=== PATIENT | female | born 1945 | race Caucasian/White ===

== ENCOUNTER → 2017-08-14 | Outpatient (CLI) | payer OTHER | END | disposition home or self-care (01) | LOC: KCIC MAMMO 15:59 | DX: Z12.31 Encounter for screening mammogram for malignant neoplasm of breast (principal) | CPT/HCPCS: 77067 ==

== ENCOUNTER → 2017-08-31 | Outpatient (CLI) | payer OTHER | END | disposition home or self-care (01) | LOC: KCIC MAMMO 12:26 | DX: N64.89 Other specified disorders of breast (principal) | CPT/HCPCS: 77065 ==

== ENCOUNTER 2018-08-11 12:54 | Inpatient (IN) | payer MEDICARE, OTHER ==
[~2018-08-11] VITALS: Ht 160 cm; Wt 88.0 kg
[2018-08-11 13:48] LABS: BASO # 0.1 x10^3/uL (0.0-0.2); BASO % 1 % (0-3); EOS # 0.2 x10^3/uL (0.0-0.7); EOS % 2 % (0-3); HEMATOCRIT 36.7 % (36.0-47.0); HEMOGLOBIN 12.1 g/dL (12.0-15.5); LYMPH # 2.1 x10^3/uL (1.0-4.8); LYMPH % 27 % (24-48); MEAN CORPUSCULAR HEMOGLOBIN 28 pg (25-35); MEAN CORPUSCULAR HGB CONC 33 g/dL (31-37); MEAN CORPUSCULAR VOLUME 86 fL (79-100); MONO # 0.6 x10^3/uL (0.0-1.1); MONO % 8 % (0-9); NEUT # 4.8 x10^3uL (1.8-7.7); NEUT % 62 % (31-73); PLATELET COUNT 369 x10^3/uL (140-400); RED BLOOD COUNT 4.29 x10^6/uL (3.50-5.40); RED CELL DISTRIBUTION WIDTH 14.1 % (11.5-14.5); WHITE BLOOD COUNT 7.7 x10^3/uL (4.0-11.0)
[2018-08-11 13:57] LABS: PROTHROMBIN TIME PATIENT 12.3 SEC (11.7-14.0)
[2018-08-11 13:58] LABS: CALCIUM 9.4 mg/dL (8.5-10.1); GFR 54.2; POTASSIUM 3.8 mmol/L (3.5-5.1)
[2018-08-11] MEDS ORDERED: ASPIRIN CHEWABLE 81 MG TABLET. PO ONE (14:00)
[2018-08-11] MEDS ORDERED: NITROGLYCERIN SUBLINGUAL 0.4 MG BOTTLE OF 25. SL PRN ×2 (14:00→14:30)
[2018-08-11 14:03] LABS: ALBUMIN 3.7 g/dL (3.4-5.0); ALBUMIN/GLOBULIN RATIO 0.9 (1.0-1.7); TOTAL BILIRUBIN 0.4 mg/dL (0.2-1.0); TOTAL PROTEIN 7.6 g/dL (6.4-8.2)
--- NOTE | 2018-08-11 14:17 | RAD ---
AP view of the chest. Comparison: Chest radiograph dated 11/23/2009. Indication: STERNAL CHEST PAIN, NAUSEA X1 DAY Findings: Normal lung volume. No focal airspace disease. Normal pulmonary vasculature. No pleural effusion. No pneumothorax. The cardiomediastinal silhouette is unchanged in appearance. The great vessels are unchanged. No acute osseous abnormality. Impression: 1. No acute cardiopulmonary process. Electronically signed by: Herb Hidalgo MD (08/11/2018 2:15 PM) [facility]
--- NOTE | 2018-08-11 14:37 | PHYS DOC ---
Past Medical History Past Medical History: Anxiety, High Cholesterol, Hypertension Past Surgical History: Cholecystectomy, Tonsillectomy Alcohol Use: Rarely Drug Use: None Adult General Chief Complaint Chief Complaint: CHEST PAIN HPI HPI Patient is a 73 year old F P/W CHEST PAIN. ONSET YESTRDAY PRESSSURE CENTER OF CHEST A/W MILD SOB AND NAUSEA NO VOMITING NO ABDO PIAN USUALLY HAPPENS AT REST [facility] THINKS SHE DOES TOO MUCH AND IS GETTING HERSELF TIRED OUT. NO FEVER. NO ABDO PAIN IN ER HAS AN EPISODE PROBABLY 10-15 MINUTES, GOT NITRO AND IT WENT AWAY COMPLETELY IMP: CHEST PAIN, DOES NOT SOUND PE OR DISSECTION HEART SCORE H 2 E 0 A 2 R 1 T 0 = ADMIT D/W HASMUKH AT 230 DISCUSSED CASE Review of Systems Review of Systems Constitutional: Denies fever or chills [] Eyes: Denies change in visual acuity, redness, or eye pain [] HENT: Denies nasal congestion or sore throat [] Respiratory: Denies cough or shortness of breath [] Cardiovascular: No additional information not addressed in HPI [] GI: Denies abdominal pain, nausea, vomiting, bloody stools or diarrhea [] : Denies dysuria or hematuria [] Musculoskeletal: Denies back pain or joint pain [] Integument: Denies rash or skin lesions [] Neurologic: Denies headache, focal weakness or sensory changes [] Endocrine: Denies polyuria or polydipsia [] All other systems were reviewed and found to be within normal limits, except as documented in this note. Current Medications Current Medications Current Medications Medications (Trade) Dose Ordered Sig/Radha Start Time Stop Time Status Last Admin Dose Admin Aspirin (Children'S Aspirin) 324 mg 1X ONCE 08/11/18 14:00 08/11/18 14:01 DC 08/11/18 13:52 324 MG Nitroglycerin (Nitrostat) 0.4 mg PRN Q5MIN PRN 08/11/18 14:00 08/11/18 13:56 0.4 MG Allergies Allergies Allergies Coded Allergies Type Severity Reaction Last Updated Verified No Known Drug Allergies 08/11/18 No Physical Exam Physical Exam Constitutional: Well developed, well nourished, no acute distress, non-toxic appearance. [] HENT: Normocephalic, atraumatic, bilateral external ears normal, oropharynx moist, no oral exudates, nose normal. [] Eyes: PERRLA, EOMI, conjunctiva normal, no discharge. [] Neck: Normal range of motion, no tenderness, supple, no stridor. [] Cardiovascular:Heart rate regular rhythm, no murmur [] Lungs & Thorax: Bilateral breath sounds clear to auscultation [] Abdomen: Bowel sounds normal, soft, no tenderness, no masses, no pulsatile masses. [] Skin: Warm, dry, no erythema, no rash. [] Back: No tenderness, no CVA tenderness. [] Extremities: No tenderness, no cyanosis, no clubbing, ROM intact, no edema. [] Neurologic: Alert and oriented X 3, normal motor function, normal sensory function, no focal deficits noted. [] Psychologic: Affect normal, judgement normal, mood normal. [] Current Patient Data Vital Signs Vital Signs Date Time Temp Pulse Resp B/P (MAP) Pulse Ox O2 Delivery O2 Flow Rate FiO2 08/11/18 13:56 71 146/67 08/11/18 13:02 97.9 16 98 Room Air 97.9 Lab Values Laboratory Tests Test 08/11/18 13:05 White Blood Count 7.7 x10^3/uL (4.0-11.0) Red Blood Count 4.29 x10^6/uL (3.50-5.40) Hemoglobin 12.1 g/dL (12.0-15.5) Hematocrit 36.7 % (36.0-47.0) Mean Corpuscular Volume 86 fL (79-100) Mean Corpuscular Hemoglobin 28 pg (25-35) Mean Corpuscular Hemoglobin Concent 33 g/dL (31-37) Red Cell Distribution Width 14.1 % (11.5-14.5) Platelet Count 369 x10^3/uL (140-400) Neutrophils (%) (Auto) 62 % (31-73) Lymphocytes (%) (Auto) 27 % (24-48) Monocytes (%) (Auto) 8 % (0-9) Eosinophils (%) (Auto) 2 % (0-3) Basophils (%) (Auto) 1 % (0-3) Neutrophils # (Auto) 4.8 x10^3uL (1.8-7.7) Lymphocytes # (Auto) 2.1 x10^3/uL (1.0-4.8) Monocytes # (Auto) 0.6 x10^3/uL (0.0-1.1) Eosinophils # (Auto) 0.2 x10^3/uL (0.0-0.7) Basophils # (Auto) 0.1 x10^3/uL (0.0-0.2) Prothrombin Time 12.3 SEC (11.7-14.0) Prothrombin Time INR 0.9 (0.8-1.1) Sodium Level 130 mmol/L (136-145) L Potassium Level 3.8 mmol/L (3.5-5.1) Chloride Level 94 mmol/L (98-107) L Carbon Dioxide Level 26 mmol/L (21-32) Anion Gap 10 (6-14) Blood Urea Nitrogen 17 mg/dL (7-20) Creatinine 1.0 mg/dL (0.6-1.0) Estimated GFR (Cockcroft-Gault) 54.2 BUN/Creatinine Ratio 17 (6-20) Glucose Level 94 mg/dL (70-99) Calcium Level 9.4 mg/dL (8.5-10.1) Total Bilirubin 0.4 mg/dL (0.2-1.0) Aspartate Amino Transferase (AST) 22 U/L (15-37) Alanine Aminotransferase (ALT) 19 U/L (14-59) Alkaline Phosphatase 81 U/L (46-116) Troponin I Quantitative < 0.017 ng/mL (0.000-0.055) YY-Zoe-X-Type Natriuretic Peptide 159 pg/mL (0-124) H Total Protein 7.6 g/dL (6.4-8.2) Albumin 3.7 g/dL (3.4-5.0) Albumin/Globulin Ratio 0.9 (1.0-1.7) L Laboratory Tests 08/11/18 13:05 Laboratory Tests 08/11/18 13:05 EKG EKG []EKG NSR NORMAL RATE AND INTERVALS NO ISCHEMIC CHANGES REPEAT EKG ALSO THE SAME NO ISCHEMIAS SEEN Radiology/Procedures Radiology/Procedures [] Impressions: Impression: 1. No acute cardiopulmonary process. Electronically signed by: Herb Hidalgo MD (08/11/2018 2:15 PM) [facility] DICTATED and SIGNED BY: HERB HIDALGO MD DATE: 08/11/18 1415 Course & Med Decision Making Course & Med Decision Making Pertinent Labs and Imaging studies reviewed. (See chart for details) []SEE HPI Dragon Disclaimer Dragon Disclaimer This electronic medical record was generated, in whole or in part, using a voice recognition dictation system. Departure Departure Impression: Primary Impression: Chest pain Disposition: ADMITTED INPATIENT Admitting Physician: Ana Laura Noe Condition: STABLE Referrals: ANA LAURA NOE MD (PCP) JOSUE AVILA MD Aug 11, 2018 14:37
[2018-08-11 15:15] VITALS: BP 140/62
[2018-08-11] MEDS ORDERED: SIMV20TA3 PO (15:48)
[2018-08-11] MEDS ORDERED: HYDR12.575 PO (15:48)
[2018-08-11] MEDS ORDERED: TEMA15CA PO (15:48)
[2018-08-11] MEDS ORDERED: CITA20TA6 PO (15:48)
[2018-08-11] MEDS ORDERED: LISI-130 PO (15:48)
[2018-08-11] MEDS ORDERED: TEMAZEPAM 15 MG CAPSULE PO PRN (16:00)
[2018-08-11 19:39] VITALS: BP 138/66
[2018-08-11] MEDS: TEMAZEPAM 15 MG CAPSULE PO SCH (20:43)
[2018-08-11] MEDS: SIMVASTATIN 20 MG TABLET PO SCH (20:43)
[2018-08-11 23:10] VITALS: BP 94/46
[2018-08-12 03:40] VITALS: BP 131/62
[2018-08-12 07:00] VITALS: BP 138/63
--- NOTE | 2018-08-12 08:22 | EKG ---
[facility] [address] [place] [address] Test Date: 2018-08-11 Test Time: 13:02:36 Pat Name: MYRA BSUH Department: Room: 202 1 Gender: Female Patient Attendant: SARITA : 1945 Requested By: JOSUE AVILA Order Number: [id number] Reading MD: Nathanael Bauer MD Measurements Intervals Colby Rate: 73 P: 105 NM: 172 QRS: 21 QRSD: 88 T: 25 QT: 372 QTc: 413 Interpretive Statements SINUS RHYTHM Electronically Signed On 08-14-2018 15:15:35 CDT by Nathanael Bauer MD
[2018-08-12] MEDS ORDERED: ACETAMINOPHEN 325 MG TABLET. PO PRN (08:30)
[2018-08-12] MEDS: LISINOPRIL 20 MG TABLET PO SCH (08:48)
[2018-08-12] MEDS: CITALOPRAM 20 MG TABLET. PO SCH (08:48)
[2018-08-12] MEDS: hydroCHLOROthiazide 12.5 MG CAPSULE PO SCH (08:48)
[2018-08-12 10:48] VITALS: BP 143/65
--- NOTE | 2018-08-12 10:49 | PDOC ---
Provider Note Provider Note [id number] doubt cardiac origin, but needs a treadmill- will inc omeprazole now, cv consult pending ANA LAURA NOE MD Aug 12, 2018 10:49
[2018-08-12] MEDS ORDERED: PANTOPRAZOLE 40 MG TABLET.DR. PO ONE (11:00)
--- NOTE | 2018-08-12 11:23 | HP ---
ADMIT DATE: 08/11/2018 CHIEF COMPLAINT: Chest pressure. HISTORY OF PRESENT ILLNESS: A 73-year-old white female with a history of controlled hypertension and hyperlipidemia, was doing well until the day prior to admission. She was at a softball game and on the way driving home, she developed "chest pressure" with some mild burning sensation like heartburn and mild shortness of breath and dizziness, nonspecific. There was no radiation, diaphoresis, vomiting, nausea, cough or other symptoms. The symptoms resolved fairly quickly, but the next day recurred while she was again at rest and she came to the ER. She was having the chest pressure in the Emergency Room and nitroglycerin relieved this pressure and also gave her a headache. She normally takes Prilosec 20 mg daily for acid reflux and had been taking that medication every day. The day of the onset of symptoms, she walked up a hill, had a softball game without any chest pain and just mild dyspnea. She has never had any cardiac events before. MEDICATIONS: Include lisinopril, hydrochlorothiazide and simvastatin with excellent control of lipids. PAST MEDICAL HISTORY: There is no history of diabetes, no other significant medical problems. SOCIAL HISTORY: Nonsmoker, , employed, nondrinker. FAMILY HISTORY: Unremarkable. REVIEW OF SYSTEMS: No other complaints. PHYSICAL EXAMINATION: ENT: All within normal limits. NECK: No masses, nodes or bruits. LUNGS: Clear. CARDIOVASCULAR: Regular rate. No irregular beat, murmur or tachycardia. ABDOMEN: Soft, benign and nontender. EXTREMITIES: Excellent pedal and radial pulses. No joint or skin lesions or nail bed findings. NEUROLOGIC: Physiologic and nonfocal. GENITOURINARY AND RECTAL: Deferred. LABORATORY STUDIES: Showed normal EKG and chest x-ray, troponin x 3 and all chemistry tests were unremarkable as was the CBC. Recent lipid profile showed a total cholesterol around 140, LDL around 60. ASSESSMENT: Chest pressure and burning, relieved by nitroglycerin. She is certainly low risk for coronary artery disease, had an exercise the day of the symptoms without any symptoms developing. Could be esophageal in origin with spasm, but cannot rule out coronary artery disease, though she has not had a myocardial infarction. Her lipids and hypertension control is excellent. PLAN: I would suggest a treadmill study and we will keep the hat former's opinion. Might be discharged and followed as an outpatient for this study as she is medically stable, but get their opinion for this as well. We will increase the dose of omeprazole to cover the possible or gastroesophageal origin of symptoms. ANA LAURA NOE MD DR: RAHUL/augustin JOB#: [id number] / [id number]
--- NOTE | 2018-08-12 12:18 | PDOC2 ---
CONSULT Date of Consult Date of Consult DATE: 08/12/18 TIME: 12:12 Reason for Consult Reason for Consult: Chest pain Referring Physician Referring Physician: Dr. Horn Identification/Chief Complaint Chief Complaint Chest pain Source Source: Chart review, Patient History of Present Illness Reason for Visit: The patient is a 73-year-old female with a history of hypertension, hyperlipidemia and gastroesophageal reflux disease who was admitted last evening from the emergency room due to episodes of chest pain. Patient states that her pain came on abruptly and was associated with shortness of breath and mild nausea. The patient reportedly had one episode of chest pain in the emergency room that was resolved with sublingual nitroglycerin. She has been pain-free overnight and is resting comfortably today. Her EKG shows no acute ischemic changes. Troponins have been normal x 3. Past Medical History Cardiovascular: HTN, Hyperlipidemia GI: GERD Past Surgical History Past Surgical History: Cholecystectomy, Tonsillectomy Family History Family History: Hypertension Social History No ALCOHOL: rare Current Problem List Problem List Problems Medical Problems: (1) Chest pain Status: Acute Current Medications Current Medications Current Medications Aspirin (Children'S Aspirin) 324 mg 1X ONCE PO Last administered on 08/11/18at 13:52; Start 08/11/18 at 14:00; Stop 08/11/18 at 14:01; Status DC Nitroglycerin (Nitrostat) 0.4 mg PRN Q5MIN PRN SL CHEST PAIN Last administered on 08/11/18at 13:56; Start 08/11/18 at 14:00; Stop 08/11/18 at 14:33; Status DC Nitroglycerin (Nitrostat) 0.4 mg PRN Q5MIN PRN SL CHEST PAIN; Start 08/11/18 at 14:30; Stop 08/12/18 at 14:29 Citalopram Hydrobromide (CeleXA) 20 mg DAILY PO Last administered on 08/12/18at 08:48; Start 08/12/18 at 09:00 Hydrochlorothiazide (Microzide) 12.5 mg DAILY PO Last administered on 08/12/18at 08:48; Start 08/12/18 at 09:00 Lisinopril (Prinivil) 40 mg DAILY PO Last administered on 08/12/18at 08:48; Start 08/12/18 at 09:00 Temazepam (Restoril) 15 mg QHS PO Last administered on 08/11/18at 20:43; Start at 21:00 Simvastatin (Zocor) 20 mg HS PO Last administered on 08/11/18at 20:43; Start 08/11 at 21:00 Temazepam (Restoril) 15 mg PRN QHS PRN PO IF CONTINUED INSOMNIA; Start 08/11/18 at 16:00 Acetaminophen (Tylenol) 650 mg PRN Q6HRS PRN PO MILD PAIN / TEMP Last administered on 08/12/18at 08:48; Start 08/12/18 at 08:30 Pantoprazole Sodium (Protonix) 40 mg 1X ONCE PO Last administered on 08/12/18at 11:37; Start 08/12/18 at 11:00; Stop 08/12/18 at 11:01; Status DC Active Scripts Active Reported Simvastatin 20 Mg Tablet 1 Tab PO QHS Hydrochlorothiazide Capsule (Hydrochlorothiazide) 12.5 Mg Capsule 12.5 Mg PO DAILY Lisinopril 40 Mg Tablet 1 Tab PO DAILY Citalopram Hbr (Citalopram Hydrobromide) 20 Mg Tablet 1 Tab PO DAILY Temazepam 15 Mg Capsule 1-2 Cap PO QHS Allergies Allergies: Coded Allergies: No Known Drug Allergies (Unverified , 08/11/18) ROS Respiratory: YES: SOB with excertion Cardiovascular: yes Chest Pain Physical Exam General: No acute distress HEENT: Atraumatic Lungs: Clear to auscultation Heart: Regular rate Abdomen: Normal bowel sounds Vitals VITALS Vital Signs Date Time Temp Pulse Resp B/P (MAP) Pulse Ox O2 Delivery O2 Flow Rate FiO2 08/12/18 10:48 97.8 74 18 143/65 (91) 96 Room Air 97.8 Labs Labs Laboratory Tests Test 08/11/18 13:05 08/11/18 17:30 08/11/18 20:30 White Blood Count 7.7 x10^3/uL (4.0-11.0) Red Blood Count 4.29 x10^6/uL (3.50-5.40) Hemoglobin 12.1 g/dL (12.0-15.5) Hematocrit 36.7 % (36.0-47.0) Mean Corpuscular Volume 86 fL (79-100) Mean Corpuscular Hemoglobin 28 pg (25-35) Mean Corpuscular Hemoglobin Concent 33 g/dL (31-37) Red Cell Distribution Width 14.1 % (11.5-14.5) Platelet Count 369 x10^3/uL (140-400) Neutrophils (%) (Auto) 62 % (31-73) Lymphocytes (%) (Auto) 27 % (24-48) Monocytes (%) (Auto) 8 % (0-9) Eosinophils (%) (Auto) 2 % (0-3) Basophils (%) (Auto) 1 % (0-3) Neutrophils # (Auto) 4.8 x10^3uL (1.8-7.7) Lymphocytes # (Auto) 2.1 x10^3/uL (1.0-4.8) Monocytes # (Auto) 0.6 x10^3/uL (0.0-1.1) Eosinophils # (Auto) 0.2 x10^3/uL (0.0-0.7) Basophils # (Auto) 0.1 x10^3/uL (0.0-0.2) Prothrombin Time 12.3 SEC (11.7-14.0) Prothromb Time International Ratio 0.9 (0.8-1.1) Sodium Level 130 mmol/L (136-145) Potassium Level 3.8 mmol/L (3.5-5.1) Chloride Level 94 mmol/L (98-107) Carbon Dioxide Level 26 mmol/L (21-32) Anion Gap 10 (6-14) Blood Urea Nitrogen 17 mg/dL (7-20) Creatinine 1.0 mg/dL (0.6-1.0) Estimated GFR (Cockcroft-Gault) 54.2 BUN/Creatinine Ratio 17 (6-20) Glucose Level 94 mg/dL (70-99) Calcium Level 9.4 mg/dL (8.5-10.1) Total Bilirubin 0.4 mg/dL (0.2-1.0) Aspartate Amino Transf (AST/SGOT) 22 U/L (15-37) Alanine Aminotransferase (ALT/SGPT) 19 U/L (14-59) Alkaline Phosphatase 81 U/L (46-116) Troponin I Quantitative < 0.017 ng/mL (0.000-0.055) < 0.017 ng/mL (0.000-0.055) < 0.017 ng/mL (0.000-0.055) DT-Waa-T-Type Natriuretic Peptide 159 pg/mL (0-124) Total Protein 7.6 g/dL (6.4-8.2) Albumin 3.7 g/dL (3.4-5.0) Albumin/Globulin Ratio 0.9 (1.0-1.7) Laboratory Tests Test 08/11/18 13:05 08/11/18 17:30 08/11/18 20:30 White Blood Count 7.7 x10^3/uL (4.0-11.0) Red Blood Count 4.29 x10^6/uL (3.50-5.40) Hemoglobin 12.1 g/dL (12.0-15.5) Hematocrit 36.7 % (36.0-47.0) Mean Corpuscular Volume 86 fL (79-100) Mean Corpuscular Hemoglobin 28 pg (25-35) Mean Corpuscular Hemoglobin Concent 33 g/dL (31-37) Red Cell Distribution Width 14.1 % (11.5-14.5) Platelet Count 369 x10^3/uL (140-400) Neutrophils (%) (Auto) 62 % (31-73) Lymphocytes (%) (Auto) 27 % (24-48) Monocytes (%) (Auto) 8 % (0-9) Eosinophils (%) (Auto) 2 % (0-3) Basophils (%) (Auto) 1 % (0-3) Neutrophils # (Auto) 4.8 x10^3uL (1.8-7.7) Lymphocytes # (Auto) 2.1 x10^3/uL (1.0-4.8) Monocytes # (Auto) 0.6 x10^3/uL (0.0-1.1) Eosinophils # (Auto) 0.2 x10^3/uL (0.0-0.7) Basophils # (Auto) 0.1 x10^3/uL (0.0-0.2) Prothrombin Time 12.3 SEC (11.7-14.0) Prothromb Time International Ratio 0.9 (0.8-1.1) Sodium Level 130 mmol/L (136-145) Potassium Level 3.8 mmol/L (3.5-5.1) Chloride Level 94 mmol/L (98-107) Carbon Dioxide Level 26 mmol/L (21-32) Anion Gap 10 (6-14) Blood Urea Nitrogen 17 mg/dL (7-20) Creatinine 1.0 mg/dL (0.6-1.0) Estimated GFR (Cockcroft-Gault) 54.2 BUN/Creatinine Ratio 17 (6-20) Glucose Level 94 mg/dL (70-99) Calcium Level 9.4 mg/dL (8.5-10.1) Total Bilirubin 0.4 mg/dL (0.2-1.0) Aspartate Amino Transf (AST/SGOT) 22 U/L (15-37) Alanine Aminotransferase (ALT/SGPT) 19 U/L (14-59) Alkaline Phosphatase 81 U/L (46-116) Troponin I Quantitative < 0.017 ng/mL (0.000-0.055) < 0.017 ng/mL (0.000-0.055) < 0.017 ng/mL (0.000-0.055) DL-Zow-U-Type Natriuretic Peptide 159 pg/mL (0-124) Total Protein 7.6 g/dL (6.4-8.2) Albumin 3.7 g/dL (3.4-5.0) Albumin/Globulin Ratio 0.9 (1.0-1.7) Images Images Chest x-ray with no acute changes. Assessment/Plan Assessment/Plan 1. Chest pain. Patient is feeling better at this time. Her EKG shows no acute ischemic changes. Troponin's have been normal. She did have an episode of chest pain relieved with sublingual nitroglycerin in the emergency room although though this can also be effective with GI pain. She has risk factors of hypertension and hyperlipidemia. I discussed various options with the patient and her family. I have suggested a nuclear stress test but also gave the patient the option of a cardiac catheterization in the setting of her risk factors, her progressive symptoms and symptom relief with nitroglycerin. Risk and benefits of both approaches were discussed with the patient. She will discuss this further with her family and give us a final decision later today. 2. Hypertension. Patient's blood pressures under better control. Will continue present treatments. 3. Hyperlipidemia. Continue present treatment. 4. Gastroesophageal reflux disease. Proton pump inhibitors as above. Thank you for allowing us to participate in the care of your patient. MEME HANSON MD Aug 12, 2018 12:18
[2018-08-12 14:25] VITALS: BP 136/66
[2018-08-12 19:40] VITALS: BP 122/60
[2018-08-12] MEDS: SIMVASTATIN 20 MG TABLET PO SCH (20:47)
[2018-08-12] MEDS: TEMAZEPAM 15 MG CAPSULE PO SCH (20:47)
[2018-08-12 23:05] VITALS: BP 122/68
[2018-08-13] VITALS (10 sets, daily range): BP systolic 123–152; BP diastolic 62–73
[2018-08-13] MEDS ORDERED: IV NORMAL SALINE 1000ML BAG 1,000 ML IV SCH ×2 (07:30→09:32)
[2018-08-13] MEDS ORDERED: LIDOCAINE 1% Multi-Dose 20 ML VIAL. ONE (08:01)
[2018-08-13] MEDS ORDERED: IOHEXOL 300 MG/ML 100ML VIAL. ONE (08:01)
[2018-08-13] MEDS ORDERED: HEPARIN for ARTERIAL LINE 1,500 ML ONE (08:01)
[2018-08-13] MEDS: CITALOPRAM 20 MG TABLET. PO SCH (08:18)
[2018-08-13] MEDS: LISINOPRIL 20 MG TABLET PO SCH (08:18)
[2018-08-13] MEDS: hydroCHLOROthiazide 12.5 MG CAPSULE PO SCH (08:18)
--- NOTE | 2018-08-13 08:42 | PDOC ---
MODERATE SEDATION ASSESSMENT RISKS/ALTERNATIVES Risks/Alternatives Risks and alternatives of this type of sedation and procedure discussed with: RISK/ALTERNATIVES: Patient H & P ON CHART H & P H & P on chart and reviewed for co-morbid conditions and appropriate labs. H&P ON CHART: Yes STATUS PREG STATUS ASSESSED: Yes MEDS/ALLERGIES REVIEWED Meds/Allergies Reviewed Medications and Allergies including time and route of recently administered narcotics and sedatives. MEDS/ALLERGIES REVIEWED: Yes ASA RATING ASA RATING: II AIRWAY ASSESSMENT Airway Assessment Airway patency, oral function limitations, presence of caps, crowns, dentures, partials, and ability to extend neck assessed. AIRWAY ASSESSMENT: Yes MALLAMPATI SCORE MALLAMPATI SCORE: II PRE-SEDATION ASSESSMENT PRE-SEDATION ASSESSMENT: Yes MEME HANSON MD Aug 13, 2018 08:42
--- NOTE | 2018-08-13 08:43 | PDOC ---
Provider Note Provider Note vs, no more pain or new sxs- she elected cath and is there now- disposition re results ANA LAURA NOE MD Aug 13, 2018 08:43
[2018-08-13] MEDS ORDERED: fentaNYL PF VIAL 100 MCG/2 ML VIAL ONE (08:47)
[2018-08-13] MEDS ORDERED: MIDAZOLAM HCL/PF 2 MG/2 ML VIAL. ONE (08:48)
[2018-08-13] MEDS ORDERED: fentaNYL PF VIAL 100 MCG/2 ML VIAL IV ONE (09:15)
[2018-08-13] MEDS ORDERED: IOHEXOL 300 MG/ML 100ML VIAL. IART ONE (09:15)
[2018-08-13] MEDS ORDERED: LIDOCAINE 1% Multi-Dose 20 ML VIAL. INJ ONE (09:15)
[2018-08-13] MEDS ORDERED: MIDAZOLAM HCL/PF 2 MG/2 ML VIAL. IV ONE (09:15)
[2018-08-13] MEDS ORDERED: CONTRAST GIVEN. MC PRN (09:30)
[2018-08-13] MEDS ORDERED: 0.9 % SODIUM CHLORIDE 10 ML DISP.SYRIN. IV PRN (09:45)
[2018-08-13] MEDS ORDERED: NITROGLYCERIN SUBLINGUAL 0.4 MG BOTTLE OF 25. SL PRN (09:45)
--- NOTE | 2018-08-13 11:40 | CARD ---
MR#: [id number] Date of Study: 08/13/2018 Ordering Physician: MEME BARLOW, Referring Physician: Maggie TOVAR: Cecilia Ricketts RT (R) APPROVED REPORT Procedures Left heart catheterization Left ventriculogram Selective coronary angiogram The patient is a 73-year-old female who was admitted with episodes of chest pain. One of her episodes of pain resolved with sublingual nitroglycerin. She has risk factors of hypertension and hyperlipide romelia. In this setting cardiac catheterization was discussed. Risks and benefits were covered with the patient and her family. She's agreed to proceed. After informed consent was obtained the patient was brought to the heart catheterization lab. The are a of the right femoral artery was prepared usual manner with Betadine, sterile draping and local anes thetic. An 18-gauge needle was used to enter the right femoral artery, a wire placed the 6 Maldivian she ath placed over the wire. A 6 Maldivian JL4 diagnostic catheter was used to engage the left coronary sys tem and sequential injections in various views were obtained. A 6 [place]ian Ghanshyam right diagnostic ca theter was used to engage the right coronary artery and sequential injections in various views were o btained. A pigtail catheter was advanced the left ventricle. Pressures were obtained. A 30 NULL left ventriculogram was performed. Pullback pressures were measured. The catheter was removed from the pat ient. All catheter exchanges were over a J-wire. Injection of the sheath showed normal placement. The sheath was removed and sealed with an Angio-Seal product. The patient was moved to the holding area in stable condition. Findings. Hemodynamics. Left ventricular pressure of 138/6, 15. Aortic root pressure of 136/64. Coronaries. Left main. The left main was a normal-size vessel. It had no lesions. Left anterior descending. The LAD was a moderate size vessel with normal distribution. It had mild sm ooth proximal tapering of 15%. Left circumflex. The left circumflex is a moderate size dominant vessel. It had no lesions. Right coronary artery. The right coronary was a moderate size nondominant vessel. It had no lesions. Left ventriculogram. The left ventricle had normal left ventricular systolic function with ejection fraction of greater th an 55%. <Conclusion> Minimal single-vessel coronary disease with no lesions greater than 20%. Normal left ventricular systolic function. Normal left ventricular EDP. Signed by : Meme Barlow MD Electronically Approved : 08/13/2018 11:39:33
--- NOTE | 2018-08-13 12:31 | NUR ---
SS following for discharge planning. SS reviewed pt chart. Pt is from home with spouse and is currently requiring oxygen. No discharge needs noted at this time. SS will continue to follow for pending discharge needs.
[2018-08-13] MEDS ORDERED: OMEP40CA5 PO (16:19)
--- NOTE | 2018-08-13 16:48 | NUR ---
Discharge Note: MYRA BUSH Discharge instructions and discharge home medications reviewed with Patient and a copy given. All questions have been answered and understanding verbalized. Post cardiac cath instructions given and understanding verbalized.
--- NOTE | 2018-08-13 23:20 | DS ---
DATE OF DISCHARGE: 08/13/2018 HOSPITAL SUMMARY: A 73-year-old white female admitted with nonspecific pressure-like pain in her mid epigastrium and lower chest associated with some heartburn. This had not been brought on by any exercise stress and was not accompanied by diaphoresis, nausea or much shortness of breath. EKG and troponins were all normal as was all of her lab work and chest x-ray. She was given the option of a treadmill evaluation versus cardiac catheterization and the family elected to have a cardiac catheterization, which was done on 08/[address] Madden and revealed no sign of any coronary artery disease. She is comfortable to be discharged and followed as an outpatient at this point. FINAL DIAGNOSIS: Chest pain, likely secondary to esophageal spasm from gastroesophageal reflux disease. OPERATIONS AND PROCEDURES: Cardiac catheterization. COMPLICATIONS: None. CONSULTATIONS: Dr. Madden's group. DISPOSITION: Increase Prilosec OTC to 40 mg daily. Rest of home meds remained the same. Office followup in [address] Noe if any new symptoms do occur. ANA LAURA NOE MD DR: RAHUL/augustin JOB#: [id number] / [id number]
== END 2018-08-13 16:38 | disposition home or self-care (01) | DRG 392 ==
LOC: ER 12:54 → 2 NORTH 14:30 → OBSVTOIN 14:30
PROVIDERS: ADMIT Family Medicine; ATTEND Family Medicine
PROC: 4A023N7 Measurement of Cardiac Sampling and Pressure, Left Heart, Percutaneous Approach (ICD-10-PCS; principal; 2018-08-13)
PROC: B2151ZZ Fluoroscopy of Left Heart using Low Osmolar Contrast (ICD-10-PCS; 2018-08-13)
PROC: B2111ZZ Fluoroscopy of Multiple Coronary Arteries using Low Osmolar Contrast (ICD-10-PCS; 2018-08-13)
DX: K21.9 Gastro-esophageal reflux disease without esophagitis (principal); K22.4 Dyskinesia of esophagus; E78.00 Pure hypercholesterolemia, unspecified; E78.5 Hyperlipidemia, unspecified; I10 Essential (primary) hypertension; F41.9 Anxiety disorder, unspecified; Z90.49 Acquired absence of other specified parts of digestive tract; Z79.899 Other long term (current) drug therapy; Z82.49 Family history of ischemic heart disease and other diseases of the circulatory system
CPT/HCPCS: 93458; G0269; 36415; 71045; 80053; 83880; 84484; 85025; 85610; 93005; 99152; 99153; C1760; C1769; C1892; J1644; J2250; J3010; J7030; Q9967; 99285-25; C1771

== ENCOUNTER → 2019-05-31 | Outpatient (CLI) | payer MEDICARE ==
[2018-08-13 15:46] VITALS: BP 131/62
[~2019-05-31] MED LIST: CITA20TA6 PO; HYDR12.575 PO; IOHEXOL 180 MG/ML 10 ML VIAL. ONE; LISI-130 PO; OMEP40CA45 PO; SIMV20TA18 PO; TEMA15CA PO; methylPREDNISolone ACETATE 40 MG/ML VIAL. ONE; methylPREDNISolone ACETATE 80 MG/ML VIAL. ONE
--- NOTE | 2019-06-01 02:16 | PAIN ---
DATE OF SERVICE: 05/31/2019 INITIAL CONSULTATION FOR PAIN CLINIC CHIEF COMPLAINT: Low back and right lower extremity pain. HISTORY OF PRESENT ILLNESS: This is a 73-year-old female who presents with history of pain in low back and right lower extremity for about 12 years. The patient reports it is getting worse over the past 1-2 years. She had had some physical therapy in the past, but doing some exercises recently, which actually made the pain worse this time. She has had some epidural injections at an outside facility several years ago, which helped as well. The patient reports the pain is increased in the low back radiating to posterior gluteus, posterolateral thigh, lateral anterior thigh, anterior medial thigh, posterior calf and posterior lower leg. The patient reports some numbness in the right side as well in the lateral aspect of the leg with walking. It is worse with standing and changing positions, better with sitting or lying down, does not awaken her from sleep at night, does not affect her bowel or bladder control or ability to walk significantly. She is not using any assistive devices to ambulate. The patient reports the pain is constant, sharp, now throbbing, stabbing, shooting in the right lower extremity with tingling and numbness in the foot and some numbness in the lateral lower leg as well on the right side. The patient rates her disability rating from 0-10, 10 being the worst, is a 4 with family home responsibilities, social activity and sexual behavior, 8 with recreation, 5 with occupational activities, 0 with self-care or life support activities. The patient did have MRI scan of the lumbar spine showing at L4-L5, marked narrowing of the disk space with greater on the right than left facet hypertrophy, ligamentum flavum hypertrophy on the right with neural foraminal stenosis on the right, marked encroachment of the left as well with some narrowing at L5-S1, circumferential bulge and marked facet hypertrophy and narrowing of the neural foramina. The patient reports no loss of motor function, but significant fatigability with the right lower extremity, such as walking or standing, again better with sitting, however, she has almost no pain in lying down, does not awaken her from sleep at night. PAST MEDICAL HISTORY: Significant for shortness of breath, hypertension, bronchitis, history of dizziness, arthritis. PREVIOUS SURGERY: Include cholecystectomy in 2004, tonsillectomy in 1950. CURRENT MEDICATIONS: Include temazepam, hydrochlorothiazide, lisinopril, omeprazole, citalopram and simvastatin. ALLERGIES: The patient has no known drug allergies. FAMILY HISTORY: Significant for diabetes. SOCIAL HISTORY: The patient drinks alcohol about once every few months. Does not smoke, does not use any illegal, illicit or recreational drugs. She is , lives with her spouse, has one adult son and lives locally in [place], [place]. The patient works for a local [employer] company. REVIEW OF SYSTEMS: The patient's review of systems is positive for those items mentioned in history of present illness. All systems reviewed and otherwise negative. It is complete, full and well documented on the patient's chart. PHYSICAL EXAMINATION: VITAL SIGNS: The patient's blood pressure 124/68, pulse 81, respirations 16, temperature 97.9 degrees Fahrenheit, height is 5 feet 3 inches, weight is 199 pounds. GENERAL: The patient is awake, alert, oriented, appropriate, very pleasant demeanor. HEENT: Shows normocephalic, atraumatic. Extraocular movements are intact and symmetrical. Oral cavity shows mucous membranes moist and pink. Dentition is intact. NECK: Shows anterior throat supple without palpable lymphadenopathy noted. Swallow reflex symmetrical. CHEST: Shows normal on inspection. Breath sounds are clear bilaterally. HEART: Shows S1, S2 clear. No murmurs auscultated. ABDOMEN: Soft, nontender, nondistended. No palpable organomegaly is noted. No rebound or guarding demonstrated. BACK: Shows spine grossly in the midline. Normal appearing thoracic kyphosis and minor flattening of lumbar lordotic curvature with a lumbar paraspinous musculature shows symmetrical on inspection, on palpation shows some moderate tenderness throughout the middle and lower distribution of paraspinous muscles bilaterally, slightly worse on the right side than the left, but without asymmetry, no atrophy, hypertrophy, no trigger points. No tenderness over the spinous processes, sacrum or sacroiliac regions. No tenderness over the posterior superior iliac spines. The patient shows full rotational motion of the lumbar spine, both laterally greater than 10 degrees right and left as well as extension greater than 10 degrees, forward flexion at 45 degrees without significant pain reported. EXTREMITIES: The patient's lower extremities show deep tendon reflexes at 2+ in the patellar, 1+ tendo-calcaneus tendons. Motor exam is strong with approximately 4 on a scale of 5 with right dorsiflexion, extension, quadriceps and hamstring and 5/5 on the left. Peripheral pulses are 1+ posterior tibia. No peripheral edema is noted. Lower extremities are warm and dry to touch, equal in color and appearance. Straight leg raise noted to be negative for reproduction of radicular symptoms bilaterally. Gaenslen's and Chuy's maneuvers are negative bilaterally as well. The patient is able to stand, stand on her toes without significant loss of balance and walks with a normal appearing gait for short distance in the office without any assistive devices. SKIN: Shows warm and dry, good turgor. No edema, no sores, rashes or bruising. IMPRESSION: 1. This is a 73-year-old female with approximate 12-year history of low back and right lower extremity pain in a radicular fashion. 2. MRI scan of lumbar spine as noted. 3. Arthritis. 4. Hypertension. PLAN: Options were discussed with the patient including conservative medical managements, physical therapies and interventional techniques and she would like to pursue interventional techniques as she has had good success with these in the past and has done recent therapy exercises with increased pain. We discussed a lumbar epidural steroid injection using description as well as anatomical models to describe the procedure. Risks were then discussed including, but not limited to bleeding, infection, possibility of epidural hematoma, subsequent neurological compromise, dural puncture, headaches, spinal cord and/or nerve damage, side effects of steroid medication and poor results regarding pain control. The patient understands and wished to proceed. The patient will return to clinic in approximately 2 weeks for followup. She was counseled on return appointment, activity level and side effects to be aware of. DIAGNOSES: Lumbar radiculopathy with lumbar degenerative disk disease and lumbar spinal stenosis. PROCEDURE: Lumbar epidural steroid injection, translaminar approach L5-S1 level using C-arm fluoroscopic guidance under sterile prep and drape using local anesthetic. MEDICATION INJECTED: A total of 120 mg Depo-Medrol plus 10 mL of preservative-free normal saline and 2 mL of contrast. CONDITION AT DISCHARGE: Stable. The patient tolerated the procedure well, had no complications. MADDIE PENDLETON MD DR: ANH/augustin JOB#: [id number] / [id number] ANA LAURA Ferguson MD
== END | disposition home or self-care (01) ==
LOC: PNCL 10:06
PROVIDERS: ATTEND Anesthesiology
DX: M51.16 Intervertebral disc disorders with radiculopathy, lumbar region (principal); M19.90 Unspecified osteoarthritis, unspecified site; I10 Essential (primary) hypertension; J40 Bronchitis, not specified as acute or chronic; Z90.49 Acquired absence of other specified parts of digestive tract; Z98.890 Other specified postprocedural states; Z79.899 Other long term (current) drug therapy; Z83.3 Family history of diabetes mellitus
CPT/HCPCS: 62323; J1030; J1040; Q9965

== ENCOUNTER → 2019-06-14 | Outpatient (CLI) | payer MEDICARE ==
[2018-08-13 15:46] VITALS: BP 131/62
--- NOTE | 2019-06-14 11:51 | PAIN ---
DATE OF SERVICE: PROGRESS NOTE FOR PAIN CLINIC DIAGNOSES: Lumbar radiculopathy with lumbar degenerative disk disease, and lumbar spinal stenosis. HISTORY OF PRESENT ILLNESS: The patient is 74-year-old female who returns for followup status post lumbar epidural steroid injection x1. The patient reports about 80% improvement and still helping with pain in the low back and right lower extremity. The patient reports she is very pleased with her progress and increased activity with greater ease and comfort, walking greater distances, doing household activities, traveling with greater ease. The patient reports she is sleeping well at night, does not awaken her from sleep. She is able to sleep on her right side now, which is new. The patient reports her pain is a 7 on a scale of 10 at its worst over the past week, 5 on average, 3 at its least and is a 3 today. The patient reports no new motor or sensory deficits, no new bowel or bladder incontinence or other complaints. PHYSICAL EXAMINATION: VITAL SIGNS: The patient's blood pressure 154/81, pulse 81, respirations 16, temperature 98.4 degrees Fahrenheit, weight is 160 pounds. GENERAL: The patient is awake, alert, oriented, appropriate, very pleasant demeanor. HEENT: Shows normocephalic, atraumatic. Extraocular movements are intact and symmetrical. Oral cavity: Mucous membranes moist and pink. Dentition is intact. NECK: Shows anterior throat supple without palpable lymphadenopathy noted. Swallow reflex symmetrical. CHEST: Shows normal on inspection. Breath sounds clear to auscultation bilaterally. HEART: Shows S1, S2 clear. No murmurs auscultated. ABDOMEN: Soft, nontender, nondistended. No palpable organomegaly is noted. No rebound or guarding demonstrated. BACK: Shows spine grossly in the midline. Normal appearing thoracic kyphosis and slight flattening of lumbar lordotic curvature. Lumbar paraspinous muscle shows symmetrical on inspection, with palpation shows some moderate tenderness diffusely bilaterally and diffusely without significant radiation. EXTREMITIES: The patient's lower extremities show deep tendon reflexes at 2+ patellar, 1+ tendo-calcaneus tendons. Motor exam is approximately 4 on a scale of 5 on the right with dorsiflexion and extension, 5/5 on the left. Peripheral pulses are 1+ posterior tibia. No peripheral edema bilaterally. Options were discussed with the patient. The patient's old chart was reviewed as her current medication regimen updated. Current review of systems updated today as well. We will proceed with a second in the series of lumbar epidural steroid injection today with fluoroscopic guidance. Risks were again discussed including, but not limited to bleeding, infection, possibility of epidural hematoma, subsequent neurological compromise, dural puncture, headaches, spinal cord and/or nerve damage, side effects of steroid medication and poor results regarding pain control. The patient understands and wished to proceed. The patient will return to clinic in approximately 2 weeks for followup. She was counseled on return appointment, activity level and side effects to be aware of. DIAGNOSIS: Lumbar radiculopathy with lumbar degenerative disk disease, lumbar spinal stenosis. PROCEDURE: Lumbar epidural steroid injection, translaminar approach at L5-S1 level using C-arm fluoroscopic guidance under sterile prep and drape using local anesthetic. MEDICATION INJECTED: A total of 120 mg Depo-Medrol plus 10 mL of preservative-free normal saline and 2 mL of contrast. CONDITION AT DISCHARGE: Stable. The patient tolerated procedure well, had no complications. MDADIE PENDLETON MD DR: ANH/augustin JOB#: [id number] / [id number]
== END | disposition home or self-care (01) ==
LOC: PNCL 09:25
PROVIDERS: ATTEND Anesthesiology
DX: M51.16 Intervertebral disc disorders with radiculopathy, lumbar region (principal); M48.061 Spinal stenosis, lumbar region without neurogenic claudication; Z98.890 Other specified postprocedural states
CPT/HCPCS: 62323; J1030; J1040; Q9965

== ENCOUNTER → 2019-07-23 | Outpatient (CLI) | payer MEDICARE ==
[2018-08-13 15:46] VITALS: BP 131/62
--- NOTE | 2019-07-23 20:51 | PAIN ---
DATE OF SERVICE: 07/23/2019 PROGRESS NOTE FOR PAIN CLINIC DIAGNOSES: Lumbar radiculopathy with lumbar degenerative disk disease and lumbar spinal stenosis. SUBJECTIVE: This is a 74-year-old female, who returns for followup status post lumbar epidural steroid injection x2. The patient reports about 80% improvement initially for about a month. Pain has been beginning to return now in the low back and right lower extremity, posterior gluteus, posterior thigh, posterior calf, worse with walking, standing, changing positions, better with sitting, lying down, and has been doing much better with sleeping at night. The patient reports it is awakening her now occasionally over the past few days but only occasionally. The patient reports it is aching pain and is burning and constant in the low back and the right leg, radiating as described. The patient reports it is 7 on a scale of 10 at its worst over the past week, 4 on average, 4 at its least, and is 4 today. The patient reports no new motor or sensory deficit. She has been increasing distance walking, doing work activities, sitting for longer periods, and sleeping better initially. OBJECTIVE: VITAL SIGNS: On physical examination, the patient's blood pressure is 147/83, pulse 81, respirations are 20, temperature 98.3 degree Fahrenheit, and weight is 199 pounds. GENERAL: The patient is awake, alert, oriented, appropriate, very pleasant demeanor. HEENT: Shows normocephalic, atraumatic. Extraocular movements are intact and symmetrical. Oral cavity: Mucous membranes are moist and pink. Dentition is intact. NECK: Shows anterior throat supple without palpable lymphadenopathy noted. Swallow reflex is symmetrical. CHEST: Normal on inspection. Breath sounds are clear to auscultation bilaterally. HEART: S1 and S2 clear. ABDOMEN: Soft, nontender, nondistended. BACK: Shows spine grossly in the midline; normal-appearing thoracic kyphosis; minor flattening of lumbar lordotic curvature. Lumbar paraspinous muscle shows symmetrical on inspection; with palpation, some moderate tenderness diffusely bilaterally and diffusely without significant radiation. The patient has good rotational motion of lumbar spine both laterally as well as in extension and flexion without difficulty. EXTREMITIES: Lower extremities show deep tendon reflexes 2+ in the patellar and 1+ tendo-calcaneus tendons. Motor exam is strong with 4 on a scale of 5 on the right and 5/5 on the left with dorsiflexion and extension. Peripheral pulses are 1+. No peripheral edema bilaterally. ASSESSMENT AND PLAN: Options were discussed with the patient. The patient's old chart was reviewed as her current medication regimen updated, current review of systems updated today as well, and we will proceed with the third in the series of lumbar epidural steroid injection today with fluoroscopic guidance. Risks were again discussed including but not limited to bleeding, infection, possibility of epidural hematoma, subsequent neurological compromise, dural puncture, headaches, spinal cord and/or nerve damage, side effects of steroid medication, and poor results regarding pain control. The patient understands and wished to proceed. The patient will return to clinic in approximately 2 weeks for followup. She was counseled on return appointment, activity level, and side effects to be aware of. PROCEDURES: Lumbar epidural steroid injection, translaminar approach, L5-S1 level using C-arm fluoroscopic guidance under sterile prep and drape using local anesthetic. MEDICATION INJECTED: A total of 120 mg Depo-Medrol plus 10 mL of preservative-free normal saline and 2 mL of contrast. CONDITION AT DISCHARGE: Stable. The patient tolerated the procedure well and had no complications. MADDIE PENDLETON MD DR: ANH/augustin JOB#: [id number] / [id number]
== END ==
LOC: PNCL 14:35
PROVIDERS: ATTEND Anesthesiology
DX: M51.16 Intervertebral disc disorders with radiculopathy, lumbar region (principal); M48.061 Spinal stenosis, lumbar region without neurogenic claudication
CPT/HCPCS: 62323; J1030; J1040; Q9965

== ENCOUNTER → 2019-10-07 | Outpatient (CLI) | payer MEDICARE ==
[2018-08-13 15:46] VITALS: BP 131/62
[~2019-10-07] MED LIST changes: -IOHEXOL 180 MG/ML 10 ML VIAL. ONE; -methylPREDNISolone ACETATE 40 MG/ML VIAL. ONE; -methylPREDNISolone ACETATE 80 MG/ML VIAL. ONE
--- NOTE | 2019-10-07 15:23 | PAIN ---
DATE OF SERVICE: 10/07/2019 PROGRESS NOTE FOR PAIN CLINIC DIAGNOSES: Lumbar radiculopathy with lumbar degenerative disk disease and lumbar spinal stenosis. HISTORY OF PRESENT ILLNESS: The patient is a 74-year-old female who returns for followup status post lumbar epidural steroid injections x 3, most recently 07/23/2019. The patient reports that she did very well, about 80% improvement until about 2 weeks ago, the pain began to return in the low back and right lower extremity, posterior gluteus, posterior thigh, lateral thigh and posterior calf. The patient reports it is worse with walking, standing, changing positions. The patient reports it is a 9 on a scale of 10 at all times, worst, least and average and is a 9 today. The patient reports tingling and stabbing in the low back, radiating and aching into the right leg, mostly in posterior gluteus and thigh. The patient reports it is worse with walking, standing, changing positions, better with sitting, lying down, generally does not awaken her from sleep at night. The patient reports initially she was doing much better with distance walking, doing household activities and work activities, traveling with greater ease and comfort, now the pain is returning. PHYSICAL EXAMINATION: VITAL SIGNS: The patient's blood pressure is 139/74, pulse 83, respirations 18, temperature 98.2 degrees Fahrenheit, height is 5 feet 3 inches, weight is 199 pounds. GENERAL: The patient is awake, alert, oriented, appropriate, very pleasant demeanor. HEENT: Shows normocephalic, atraumatic. Extraocular movements are intact and symmetrical. Oral cavity: Mucous membranes moist and pink. Dentition is intact. NECK: Shows anterior throat supple without palpable lymphadenopathy noted. Swallow reflex symmetrical. CHEST: Shows normal on inspection. Breath sounds are clear bilaterally. HEART: Shows S1, S2 clear. ABDOMEN: Soft, nontender, nondistended. BACK: Shows spine grossly in the midline, slight exaggerated thoracic kyphosis and minor flattening of lumbar lordotic curvature. Lumbar paraspinous muscle shows symmetrical on inspection, on palpation shows some moderate tenderness diffusely bilaterally but only diffusely without significant radiation. The patient has good rotational motion of lumbar spine, both laterally as well as extension and flexion without significant difficulty. EXTREMITIES: Lower extremities show deep tendon reflexes 2+ in the patellar and tendo calcaneus tendons. Motor exam is strong with approximately 4 on a scale of 5 on the right with dorsiflexion and extension, 5/5 on the left, but intact. Peripheral pulses are 1+ posterior tibia. No peripheral edema is noted bilaterally. Options were discussed with the patient. The patient's old chart was reviewed as her current medication regimen updated. Current review of systems updated today as well. We will wait for full 6 months to elapse prior to additional injection but in the meantime, we will try Medrol Dosepak. The patient was given instruction as well as side effects to be aware of with the medication. The patient will follow up in approximately 1 month and we will plan on lumbar epidural steroid injection at that time. The patient will continue with stretching and strengthening exercises, heat and massage therapy. Also, she has been wearing a lumbar support brace, which she reports does help her when she is working or up and around on her feet quite a bit and we will continue doing that as well. The patient will return to clinic, was given instruction as well as side effects to be aware of with the medication once again and will plan on lumbar epidural steroid injection on her return. MADDIE PENDLETON MD DR: ANH/augustin JOB#: [id number] / [id number]
== END | disposition home or self-care (01) ==
LOC: PNCL 13:08
PROVIDERS: ATTEND Anesthesiology
DX: M51.16 Intervertebral disc disorders with radiculopathy, lumbar region (principal); M48.061 Spinal stenosis, lumbar region without neurogenic claudication; M40.204 Unspecified kyphosis, thoracic region
CPT/HCPCS: G0463

== ENCOUNTER → 2019-12-03 | Outpatient (CLI) | payer MEDICARE ==
[2018-08-13 15:46] VITALS: BP 131/62
[~2019-12-03] MED LIST changes: +IOHEXOL 180 MG/ML 10 ML VIAL. ONE; +methylPREDNISolone ACETATE 40 MG/ML VIAL. ONE; +methylPREDNISolone ACETATE 80 MG/ML VIAL. ONE
--- NOTE | 2019-12-03 10:48 | PAIN ---
DATE OF SERVICE: 12/03/2019 PROGRESS NOTE FOR PAIN CLINIC DIAGNOSES: Lumbar radiculopathy with lumbar spinal stenosis, lumbar degenerative disk disease. HISTORY OF PRESENT ILLNESS: The patient is a 74-year-old female who returns for followup status post lumbar epidural steroid injections. Previously, the patient reports she did very well. Her last injection was 07/23/2019. Patient did very well with about 80% improvement for several months. After that we tried a Medrol Dosepak after her last visit and this helped moderately, but the patient reports the pain is returning on the low back, right lower extremity, posterior gluteus, posterior thigh and posterior calf. The patient reports it is getting to be more noticeable with walking, standing, changing positions. The patient describes the pain as radiating, constant, tingling, cramping in the legs, shooting in the right leg, cramping in the back and aching in the back. The patient reports it is a 9 on a scale of 10 at its worst over the past week, 8 on average, 7 at its least and is a 7 today. The patient reports initially she was doing much better with increase in activities at home and work as well as walking greater distances. The patient reports it is beginning to awaken her from sleep again over the past few weeks about every 6-7 hours. The patient reports no new motor or sensory deficits, no new bowel or bladder incontinence or other complaints. PHYSICAL EXAMINATION: VITAL SIGNS: The patient's blood pressure is 144/74, pulse 79, respirations 16, temperature 98.6 degrees Fahrenheit, weight is 196 pounds. GENERAL: The patient is awake, alert, oriented, appropriate, very pleasant demeanor. HEENT: Shows normocephalic, atraumatic. Extraocular movements are intact and symmetrical. Oral cavity shows mucous membranes moist and pink. Dentition is intact. NECK: Shows anterior throat supple without palpable lymphadenopathy noted. Swallow reflex symmetrical. CHEST: Shows normal on inspection. Breath sounds are clear bilaterally. HEART: Shows S1, S2 clear. ABDOMEN: Soft, nontender, nondistended. BACK: Shows spine grossly in the midline. Normal appearing thoracic kyphosis and minor flattening of lumbar lordotic curvature. Lumbar paraspinous muscle shows symmetrical on inspection, on palpation shows some moderate tenderness diffusely bilaterally, but only diffusely without significant radiation. The patient has good rotational motion of lumbar spine, both laterally as well as extension and flexion without difficulty. EXTREMITIES: Lower extremities show deep tendon reflexes 2+ in the patellar, 1+ tendo-calcaneus tendons. Motor exam is approximately 4 on a scale of 5 on the right with dorsiflexion and extension, 5/5 on the left. Peripheral pulses are 1+. No peripheral edema is noted. Options were discussed with the patient. The patient's old chart was reviewed as her current medication regimen updated. Current review of systems updated today as well and we will proceed with a lumbar epidural steroid injection today, it is the first in this series. Risks were discussed including but not limited to bleeding, infection, possibility of epidural hematoma, subsequent neurological compromise, dural puncture, headaches, spinal cord and/or nerve damage, side effects of steroid medication and poor results regarding pain control. The patient understands and wished to proceed. The patient will return to clinic in approximately 2 weeks for followup. She was counseled on return appointment, activity level and side effects to be aware of. DIAGNOSES: Lumbar radiculopathy with lumbar degenerative disk disease, lumbar spinal stenosis. PROCEDURE: Lumbar epidural steroid injection, translaminar approach at L5-S1 level using C-arm fluoroscopic guidance under sterile prep and drape using local anesthetic. MEDICATION INJECTED: A total of 120 mg Depo-Medrol plus 10 mL of preservative-free normal saline and 2 mL of contrast. CONDITION AT DISCHARGE: Stable. The patient tolerated procedure well, had no complications. MADDIE PENDLETON MD DR: ANH/augustin JOB#: [id number] / [id number]
== END | disposition home or self-care (01) ==
LOC: PNCL 09:27
PROVIDERS: ATTEND Anesthesiology
DX: M51.16 Intervertebral disc disorders with radiculopathy, lumbar region (principal); M48.061 Spinal stenosis, lumbar region without neurogenic claudication; Z79.899 Other long term (current) drug therapy
CPT/HCPCS: 62323; J1030; J1040; Q9965

== ENCOUNTER → 2020-01-10 | Outpatient (CLI) | payer MEDICARE ==
[2018-08-13 15:46] VITALS: BP 131/62
[~2020-01-10] MED LIST changes: -IOHEXOL 180 MG/ML 10 ML VIAL. ONE; -methylPREDNISolone ACETATE 40 MG/ML VIAL. ONE; -methylPREDNISolone ACETATE 80 MG/ML VIAL. ONE
--- NOTE | 2020-01-10 18:10 | KCIC ---
BILATERAL SCREENING MAMMOGRAM History: Routine screening. Comparison: Bilateral mammogram August 14, 2017. Technique: Routine bilateral digital mammogram views were obtained. Findings: Breast Tissue Density D :The breasts are extremely dense, which lowers the sensitivity of mammography. Arterial and nonarterial calcifications are redemonstrated bilaterally. There are no dominant masses, suspicious microcalcifications, or architectural distortion. IMPRESSION: No mammographic evidence of malignancy. Recommend routine screening. BI-RADS category 2: Benign findings. The images were reviewed with computer aided detection. Patient information is entered into the reminder system with a target due date for the next screening mammogram. Mammography is the most sensitive method for finding small breast cancers, but it does not detect them all and is not a substitute for careful clinical examination. A negative mammogram does not negate a clinically suspicious finding and should not result in delay in biopsying a clinically suspicious abnormality. "Our facility is accredited by the [employer] Mammography Program." Electronically signed by: Pio Saleh MD (01/10/2020 6:07 PM) [id number]
== END | disposition home or self-care (01) ==
LOC: KCIC MAMMO 15:32
PROVIDERS: ATTEND Family Medicine
DX: Z12.31 Encounter for screening mammogram for malignant neoplasm of breast (principal); N64.89 Other specified disorders of breast
CPT/HCPCS: 77067

== ENCOUNTER → 2020-03-09 | Outpatient (CLI) | payer MEDICARE ==
[2018-08-13 15:46] VITALS: BP 131/62
[~2020-03-09] MED LIST changes: +IOHEXOL 180 MG/ML 10 ML VIAL. ONE; +methylPREDNISolone ACETATE 40 MG/ML VIAL. ONE; +methylPREDNISolone ACETATE 80 MG/ML VIAL. ONE
--- NOTE | 2020-03-09 10:58 | PDOC ---
Progress Note - Pain Clinic Date of Service: DOS: DATE: 03/09/20 TIME: 10:56 Diagnosis: Dx: Lumbar radiculopathy with lumbar degenerative disease and lumbar spinal stenosis History or Present Illness: HPI: 74-year-old female returns follow-up status post lumbar epidurals injection x1. She reports 80% improvement after the last injection until the last week or so the pain is beginning to return the low back the right lower extremity as was previously posterior gluteus posterior leg and thigh radiating patient reports is worse with walking standing changing positions better with sitting or laying down initially was doing much better with walking distances doing household activities try with greater ease and comfort still sleeping well at night does not awaken her from sleep. Patient reports her pain is 8 on scale 10 at all times over the past week average least and worst is an 8 today patient describes aching and dull shooting at times tingling again worse in the right side of the lower extremity. Physical Exam: VS: Blood pressure is 125/50 pulse 85 respirations 18 temperature is 98.3 F height is 5 foot 3 degrees 196 pounds PE: PHYSICAL EXAMINATION: GENERAL: The patient is awake, alert, oriented, appropriate, very pleasant demeanor HEENT: Shows normocephalic, atraumatic. Extraocular movements are intact and symmetrical. Oral cavity: Mucous membranes moist and pink. Dentition is intact. NECK: Shows anterior throat supple without palpable lymphadenopathy noted. Swallow reflex symmetrical. CHEST: Shows normal on inspection. Breath sounds are clear bilaterally, no rales rhonchi wheezes auscultated. HEART: Shows S1, S2 clear. No murmurs auscultated. ABDOMEN: Soft, nontender, nondistended, obese. No palpable organomegaly is noted. No rebound or guarding demonstrated. BACK: Shows spine grossly in the midline. Normal-appearing cervical lordotic curvature. There is slightly increased thoracic kyphosis, some minor flattening of the lumbar lordotic curvature. Lumbar paraspinous muscles show symmetrical on inspection, on palpation shows some moderate tenderness diffusely throughout the upper, middle and lower distribution of the paraspinous muscles without specific trigger points, without radiation of pain. The patient has good rotational motion of the lumbar spine, both laterally as well as extension and flexion without significant difficulty. No tenderness over the spinous processes, sacrum or sacroiliac regions. EXTREMITIES: Lower extremities show deep tendon reflexes 2 in the patellar and tendo calcaneus tendons. Motor exam is 4 on a scale of 5 with right dorsiflexion, extension, quadriceps and hamstring flexion and 5/5 on the left. Peripheral pulses are 1+ posterior tibial. No peripheral edema is noted bilaterally. Lower extremities are warm and dry to touch, equal in color and appearance. SKIN: Shows warm and dry, good turgor. No edema. No sores, rashes or bruising throughout. Procedure: Procedure: Options were discussed with the patient. Patient chart was reviewed as her current medication regimen updated current review of systems updated today as well. We will proceed with a second in the series lumbar epidural steroid injection today with fluoroscopic guidance. Risks were discussed including but not limited to: Bleeding, infection, possibility of epidural hematoma and subsequent neurological compromise, dural puncture, headaches, spinal cord and/or nerve damage, side effects of steroid medication, and poor results regarding pain control. Patient understands wished to proceed. Patient will return to clinic in approximate 2 weeks for follow-up, was counseled as to return appointment activity level and side effects to be aware of. Medication Injected: Med Injected: Procedure is lumbar epidural steroid injection under local anesthetic using sterile prep and drape at the L5-S1 level using C-arm fluoroscopic guidance in both AP and lateral views medications injected is 120 mg Depo-Medrol + 10 mL preservative-free normal saline and 2 mL contrast- condition at discharge is stable patient tolerated procedure well had no complications. Condition at Discharge: Condition at Discharge: Condition at discharge stable, patient tolerated procedure well and had no complications. MADDIE PENDLETON MD Mar 09, 2020 10:58
== END | disposition home or self-care (01) ==
LOC: PNCL 09:45
PROVIDERS: ATTEND Anesthesiology
DX: M51.16 Intervertebral disc disorders with radiculopathy, lumbar region (principal); M48.061 Spinal stenosis, lumbar region without neurogenic claudication; I10 Essential (primary) hypertension; E78.00 Pure hypercholesterolemia, unspecified; M19.90 Unspecified osteoarthritis, unspecified site; F41.9 Anxiety disorder, unspecified; Z79.899 Other long term (current) drug therapy; Z72.89 Other problems related to lifestyle
CPT/HCPCS: 62323; J1030; J1040; Q9965

== ENCOUNTER → 2020-06-26 | Outpatient (CLI) | payer MEDICARE ==
[2018-08-13 15:46] VITALS: BP 131/62
--- NOTE | 2020-06-26 09:24 | PDOC ---
Progress Note - Pain Clinic Date of Service: DOS: DATE: 06/26/20 TIME: : Diagnosis: Dx: Lumbar radiculopathy with lumbar degenerative disease lumbar spinal stenosis History or Present Illness: HPI: 75-year-old female returns for follow-up status post lumbar epidural steroid action with most recent March 09, 2020. Patient reports she did very well about 80% improvement after the last injection but the pain returning now over the past month or so in the low back right lower extremity posterior gluteus posterior thigh posterior calf on the right side worse with walking and standing better with sitting or laying down patient reports it is beginning to awaken her from sleep occasionally but not every night patient reports initially she is doing much better with distance walking doing household activities work activities travel with greater ease and comfort now the pain is returning in the low back and right leg as described. Patient describes it as stabbing and aching sharp shooting and constant but mostly aching in the back and the leg on the right patient rates is 8 on scale 10 is worse over the past week 7 on average 7 its least and is a 7 today. Patient reports no new motor or sensory deficits no new bowel or bladder incontinence or other complaints. Physical Exam: VS: Pressure is 144/79 pulse 77 respirations 18 temperature 98.0 F height is 5 foot 4 inches weight is 201 pound PE: PHYSICAL EXAMINATION: GENERAL: The patient is awake, alert, oriented, appropriate, very pleasant demeanor HEENT: Shows normocephalic, atraumatic. Extraocular movements are intact and symmetrical. Oral cavity: Mucous membranes moist and pink. NECK: Shows anterior throat supple without palpable lymphadenopathy noted. Swallow reflex symmetrical. CHEST: Shows normal on inspection. Breath sounds are clear bilaterally, no rales or rhonchi. HEART: Shows S1, S2 clear. No murmurs auscultated. ABDOMEN: Soft, nontender, nondistended, obese. No palpable organomegaly is noted. BACK: Shows spine grossly in the midline. Normal-appearing cervical lordotic curvature. There is slightly increased thoracic kyphosis, some minor flattening of the lumbar lordotic curvature. Lumbar paraspinous muscles show symmetrical on inspection, on palpation shows some moderate tenderness diffusely throughout the upper, middle and lower distribution of the paraspinous muscles, but without specific trigger points, without radiation of pain. The patient has good rotational motion of the lumbar spine, both laterally as well as extension and flexion without significant difficulty. EXTREMITIES: Lower extremities show deep tendon reflexes 2+ in the patellar and tendo calcaneus tendons. Motor exam is 4 on a scale of 5 with right dorsiflexion, extension, quadriceps and hamstring flexion and 5/5 on the left. Peripheral pulses are 1+ posterior tibial. No peripheral edema is noted bilaterally. Lower extremities are warm and dry to touch, equal in color and appearance. SKIN: Shows warm and dry, good turgor. No edema. No sores, rashes or bruising throughout. Procedure: Procedure: Options were discussed with the patient. Patient's old chart was reviewed as her current medication regimen updated current review of systems updated today as well. We will proceed with a third in the series lumbar epidural steroid injection today with fluoroscopic guidance. Risks were discussed including but not limited to: Bleeding, infection, possibility of epidural hematoma and subsequent neurological compromise, dural puncture, headaches, spinal cord and/or nerve damage, side effects of steroid medication, and poor results regarding pain control. Patient understands and wished to proceed. Patient return to the clinic in approximate 2 weeks for follow-up, was counseled as to return appointment activity level and side effects aware of. Medication Injected: Med Injected: Procedure is lumbar epidural steroid injection under local anesthetic using sterile prep and drape at the L5-S1 level using C-arm fluoroscopic guidance in both AP and lateral views medications injected is 120 mg Depo-Medrol + 10 mL preservative-free normal saline and 2 mL contrast- condition at discharge is stable patient tolerated procedure well had no complications. Condition at Discharge: Condition at Discharge: Condition at discharge stable, patient tolerated procedure well and had no complications. MADDIE PENDLETON MD Jun 26, 2020 09:24
--- NOTE | 2020-06-26 09:25 | PDOC4 ---
PROCEDURE Procedure Patient was consented for lumbar epidural steroid injection. Risks were dis cussed including but not limited to: Bleeding, infection, possibility of epidural hematoma and subsequent neurological compromise, dural puncture, headaches, spinal cord and/or nerve damage, side effects of steroid medication, and poor results regarding pain control. Patient understands and wished to proceed. Procedure is lumbar epidural steroid injection under local anesthetic using sterile prep and drape at the L5-S1 level using C-arm fluoroscopic guidance in both AP and lateral views medications injected is 120 mg Depo-Medrol + 10 mL preservative-free normal saline and 2 mL contrast- condition at discharge is stable patient tolerated procedure well had no complications. MADDIE PENDLETON MD Jun 26, 2020 09:24
== END | disposition home or self-care (01) ==
LOC: PNCL 08:52
PROVIDERS: ATTEND Anesthesiology
DX: M51.16 Intervertebral disc disorders with radiculopathy, lumbar region (principal); M48.061 Spinal stenosis, lumbar region without neurogenic claudication; I10 Essential (primary) hypertension; E78.00 Pure hypercholesterolemia, unspecified; M19.90 Unspecified osteoarthritis, unspecified site; F41.9 Anxiety disorder, unspecified; Z79.899 Other long term (current) drug therapy; Z98.890 Other specified postprocedural states; Z72.89 Other problems related to lifestyle
CPT/HCPCS: 62323; J1030; J1040; Q9965

== ENCOUNTER → 2020-08-17 | Outpatient (CLI) | payer MEDICARE ==
[2018-08-13 15:46] VITALS: BP 131/62
--- NOTE | 2020-08-17 10:16 | PDOC ---
Progress Note - Pain Clinic Date of Service: DOS: DATE: 08/17/20 TIME: 10:14 Diagnosis: Dx: Lumbar radiculopathy with lumbar degenerative disease and lumbar spinal stenosis History or Present Illness: HPI: 75-year-old female returns to follow-up status post lumbar epidural straight injection x1. Patient reports about 80% improvement for 3 months after the last injection the pain returning now gradually in the low back and right lower extremity. Patient reports is in the posterior gluteus posterior thigh and calf radiating worse with walking and standing better with sitting or laying down generally does not awaken her from sleep at night patient reports is a 10 on scale 10 is worse over the past week 9 on average 7 its least is an 8 today patient describes as sharp and dull shooting in the low right lower extremity tingling in the leg as well is radiating with some aching in the low back patient reports no new motor or sensory deficits, no new bowel or bladder incontinence. Physical Exam: VS: Blood pressure is 137/69 pulse 101 respirations 18 temperature 98.2 F height is 5 feet 4 inches weight is 200 and PE: PHYSICAL EXAMINATION: GENERAL: The patient is awake, alert, oriented, appropriate, very pleasant demeanor HEENT: Shows normocephalic, atraumatic. Extraocular movements are intact and symmetrical. Oral cavity: Mucous membranes moist and pink. Dentition is intact. NECK: Shows anterior throat supple without palpable lymphadenopathy noted. Swallow reflex symmetrical. CHEST: Shows normal on inspection. Breath sounds are clear bilaterally. HEART: Shows S1, S2 clear. No murmurs auscultated. ABDOMEN: Soft, nontender, nondistended. No palpable organomegaly is noted. BACK: Shows spine grossly in the midline. Normal-appearing cervical lordotic curvature. There is slightly increased thoracic kyphosis, some minor flattening of the lumbar lordotic curvature. Lumbar paraspinous muscles show symmetrical on inspection, on palpation shows some moderate tenderness diffusely throughout the upper, middle and lower distribution of the paraspinous muscles but without specific trigger points, without radiation of pain. The patient has good rotational motion of the lumbar spine, both laterally as well as extension and flexion without significant difficulty. EXTREMITIES: Lower extremities show deep tendon reflexes 2+ in the patellar and tendo calcaneus tendons. Motor exam is 4 on a scale of 5 with right dorsiflexion, extension, quadriceps and hamstring flexion and 5/5 on the left. Peripheral pulses are 1+ posterior tibial. No peripheral edema is noted bilaterally. Lower extremities are warm and dry. SKIN: Shows warm and dry, good turgor. No edema. No sores, rashes or bruising throughout. Procedure: Procedure: Options were discussed with the patient. Patient chart was reviewed as her current medication regimen updated current review of systems updated today as well. We will proceed with a second in the series lumbar epidural steroid traction stable fluoroscopic guidance. Risks were discussed including but not limited to: Bleeding, infection, possibility of epidural hematoma and subsequent neurological compromise, dural puncture, headaches, spinal cord and/or nerve damage, side effects of steroid medication, and poor results regarding pain control. Patient understands and wished to proceed. Patient will return to the clinic in approximate 2 weeks for follow-up, was counseled as return appointment activity level and side effects beware. Medication Injected: Med Injected: Procedure is lumbar epidural steroid injection under local anesthetic using sterile prep and drape at the L5-S1 level using C-arm fluoroscopic guidance in both AP and lateral views medications injected is 120 mg Depo-Medrol + 10 mL preservative-free normal saline and 2 mL contrast- condition at discharge is stable patient tolerated procedure well had no complications. Condition at Discharge: Condition at Discharge: Condition at discharge is stable, patient tolerated the procedure well and had no complications. MADDIE PENDLETON MD Aug 17, 2020 10:16
--- NOTE | 2020-08-17 10:17 | PDOC4 ---
PROCEDURE Procedure Patient was consented for lumbar epidural steroid injection. Risks were dis cussed including but not limited to: Bleeding, infection, possibility of epidural hematoma and subsequent neurological compromise, dural puncture, headaches, spinal cord and/or nerve damage, side effects of steroid medication, and poor results regarding pain control. Patient understands and wished to proceed. Procedure is lumbar epidural steroid injection under local anesthetic using sterile prep and drape at the L5-S1 level using C-arm fluoroscopic guidance in both AP and lateral views medications injected is 120 mg Depo-Medrol + 10 mL preservative-free normal saline and 2 mL contrast- condition at discharge is stable patient tolerated procedure well had no complications. MADDIE PENDLETON MD Aug 17, 2020 10:17
== END | disposition home or self-care (01) ==
LOC: PNCL 09:46
PROVIDERS: ATTEND Anesthesiology
DX: M51.16 Intervertebral disc disorders with radiculopathy, lumbar region (principal); M48.061 Spinal stenosis, lumbar region without neurogenic claudication; I10 Essential (primary) hypertension; E78.00 Pure hypercholesterolemia, unspecified; M19.90 Unspecified osteoarthritis, unspecified site; F41.9 Anxiety disorder, unspecified; Z79.899 Other long term (current) drug therapy; Z72.89 Other problems related to lifestyle
CPT/HCPCS: 62323; J1030; J1040; Q9965

== ENCOUNTER → 2020-10-15 | Outpatient (CLI) | payer MEDICARE ==
[2018-08-13 15:46] VITALS: BP 131/62
[~2020-10-15] MED LIST changes: -OMEP40CA45 PO; +OMEP40CA7 PO
--- NOTE | 2020-10-15 09:01 | PDOC ---
Progress Note - Pain Clinic Date of Service: DOS: DATE: 10/15/20 TIME: 08:59 Diagnosis: Dx: Lumbar radiculopathy with lumbar degenerative disease and lumbar spinal stenosis History or Present Illness: HPI: 75-year-old female returns for follow-up status post lumbar epidural steroid action x2. Patient seen August 17, 2020 did very well after last injection but 90% improvement for about a month and the pain began to return gradually and over the past month is becoming return in the low back and the right lower extremity posterior gluteus posterior thigh posterior calf worse with walking standing better with sitting or laying down generally does not awaken her from sleep but has over the last few days patient reports her pain is a 9 on scale 10 is worse over the past week 9 on average 7 its least is an 8 today patient reports aching and sharp in the low back tingling radiating the right lower extremity. Patient reports no new motor or sensory deficits no new bowel or bladder incontinence or other complaints. Physical Exam: VS: Blood pressure is 140/72 pulse 95 respirations 18 temperature is 98.2 F weight is 186 pounds PE: PHYSICAL EXAMINATION: GENERAL: The patient is awake, alert, oriented, appropriate, very pleasant in demeanor HEENT: Shows normocephalic, atraumatic. Extraocular movements are intact and symmetrical. NECK: Shows anterior throat supple without palpable lymphadenopathy noted. Swallow reflex symmetrical. CHEST: Shows normal on inspection. Breath sounds are clear bilaterally. HEART: Shows S1, S2 clear. No murmurs auscultated. ABDOMEN: Soft, nontender, nondistended, obese. No palpable organomegaly is noted. BACK: Shows spine grossly in the midline. Normal-appearing cervical lordotic curvature. There is slightly increased thoracic kyphosis, some minor flattening of the lumbar lordotic curvature. Lumbar paraspinous muscles show symmetrical on inspection, on palpation shows some moderate tenderness diffusely throughout the upper, middle and lower distribution of the paraspinous muscles, but without specific trigger points, without radiation of pain. The patient has good rotational motion of the lumbar spine, both laterally as well as extension and flexion without significant difficulty. EXTREMITIES: Lower extremities show deep tendon reflexes 2+ in the patellar and tendo calcaneus tendons. Motor exam is full on a scale of 5 with right dorsiflexion, extension, quadriceps and hamstring flexion and 5/5 on the left. Peripheral pulses are 1+ posterior tibial. No peripheral edema is noted bilaterally. Lower extremities are warm and dry. SKIN: Shows warm and dry, good turgor. No edema. No sores, rashes or bruising throughout. Procedure: Procedure: Options were discussed with patient. Patient's chart was reviewed as her current medication regimen updated current review of systems updated today as mary alfaro. We will proceed with a third in the series lumbar epidural steroid injection stable fluoroscopic guidance. Risks were discussed including but not limited to: Bleeding, infection, possibility of epidural hematoma and subsequent neurological compromise, dural puncture, headaches, spinal cord and/or nerve damage, side effects of steroid medication, and poor results regarding pain control. Patient understands and wished to proceed. Patient will return to the clinic in approximate 2 weeks for follow-up, was counseled as to return appointment activity level, and side effects to be aware of. Medication Injected: Med Injected: Procedure is lumbar epidural steroid injection under local anesthetic using sterile prep and drape at the L5-S1 level using C-arm fluoroscopic guidance in both AP and lateral views medications injected is 120 mg Depo-Medrol +10mL preservative-free normal saline and 2 mL contrast- condition at discharge is stable patient tolerated procedure well had no complications. Condition at Discharge: Condition at Discharge: Condition at discharge is stable, patient tolerated the procedure well and had no complications. MADDIE PENDLETON MD Oct 15, 2020 09:01
--- NOTE | 2020-10-15 09:01 | PDOC4 ---
PROCEDURE Procedure Patient was consented for lumbar epidural steroid injection. Risks were dis cussed including but not limited to: Bleeding, infection, possibility of epidural hematoma and subsequent neurological compromise, dural puncture, headaches, spinal cord and/or nerve damage, side effects of steroid medication, and poor results regarding pain control. Patient understands and wished to proceed. Procedure is lumbar epidural steroid injection under local anesthetic using sterile prep and drape at the L5-S1 level using C-arm fluoroscopic guidance in both AP and lateral views medications injected is 120 mg Depo-Medrol +10mL preservative-free normal saline and 2 mL contrast- condition at discharge is stable patient tolerated procedure well had no complications. MADDIE PENDLETON MD Oct 15, 2020 09:01
== END | disposition home or self-care (01) ==
LOC: PNCL 08:04
PROVIDERS: ATTEND Anesthesiology
DX: M51.16 Intervertebral disc disorders with radiculopathy, lumbar region (principal); M48.061 Spinal stenosis, lumbar region without neurogenic claudication; I10 Essential (primary) hypertension; E78.00 Pure hypercholesterolemia, unspecified; M19.90 Unspecified osteoarthritis, unspecified site; F41.9 Anxiety disorder, unspecified; Z79.899 Other long term (current) drug therapy; Z72.89 Other problems related to lifestyle
CPT/HCPCS: 62323; J1030; J1040; Q9965